=== PATIENT | male | born 1985 | race Caucasian/White ===

== ENCOUNTER 2016-12-29 03:43 | Emergency (ER) | payer OTHER, MEDICAID ==
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
== END 2016-12-29 04:02 ==
LOC: SED 03:43
DX: T75.4XXA Electrocution, initial encounter (principal); Y35.893A Legal intervention involving other specified means, suspect injured, initial encounter; Y93.89 Activity, other specified; Y99.8 Other external cause status; Y92.019 Unspecified place in single-family (private) house as the place of occurrence of the external cause; F10.129 Alcohol abuse with intoxication, unspecified